=== PATIENT | male | born 1980 | race African-American/Black ===

== ENCOUNTER 2019-05-05 16:23 | Emergency (ER) | payer OTHER ==
--- NOTE | 2019-05-05 17:19 | ED ---
Abdominal Pain/Male - HPI Summary HPI Summary: Patient complains of sternal chest pain and epigastric pain intermittently 2 months. Patient states occurs couple times each day, pain rated 3-6/10. Symptoms worse after eating, worse at night, accompanied by nausea. Denies fever, cough, sore throat, SOB, V/D, change in urine, change in BM. Medical history is none. Abdominal surgical history is none. No prior cardiac history. Prior history of heartburn. - History of Current Complaint Chief Complaint: EDAbdPain Stated Complaint: CHEST PAIN Time Seen by Provider: 05/05/19 17:14 Hx Obtained From: Patient Onset/Duration: Gradual Onset, Lasting Weeks Timing: Intermittent, Lasting Minutes Severity Initially: Moderate Severity Currently: Mild Pain Intensity: 3 Pain Scale Used: 0-10 Numeric Location: Epigastric Radiates to: Chest Character: Sharp, Burning Aggravating Factor(s): Food Alleviating Factor(s): Spontaneous Resolution Associated Signs And Symptoms: Positive: Chest Pain, Decreased Appetite, Nausea - Allergies/Home Medications Allergies/Adverse Reactions: Allergies Allergy/AdvReac Type Severity Reaction Status Date / Time No Known Allergies Allergy Verified 05/05/19 16:28 PMH/Surg Hx/FS Hx/Imm Hx Endocrine/Hematology History: Denies: Hx Anticoagulant Therapy Cardiovascular History: Denies: Hx Pacemaker/ICD History: Denies: Hx Dialysis Sensory History: Denies: Hx Eye Prosthesis Opthamlomology History: Denies: Hx Legally Blind EENT History: Denies: Hx Deafness Neurological History: Denies: Hx Dementia Infectious Disease History: No Infectious Disease History: Denies: Traveled Outside the [place] in Last 30 Days - Family History Known Family History: Positive: Non-Contributory - Social History Alcohol Use: Occasionally Hx Substance Use: No Hx Tobacco Use: No Review of Systems Constitutional: Negative Eyes: Negative ENT: Negative Positive: Chest Pain Respiratory: Negative Positive: Abdominal Pain, Nausea Genitourinary: Negative Musculoskeletal: Negative Skin: Negative Neurological: Negative Psychological: Normal All Other Systems Reviewed And Are Negative: Yes Physical Exam Triage Information Reviewed: Yes Vital Signs On Initial Exam: Initial Vitals Temp Pulse Resp BP Pulse Ox 98.6 F 72 19 140/110 98 05/05/19 16:24 05/05/19 16:24 05/05/19 16:24 05/05/19 16:24 05/05/19 16:24 Vital Signs Reviewed: Yes Appearance: Positive: Well-Appearing Skin: Positive: Warm Head/Face: Positive: Normal Head/Face Inspection Eyes: Positive: Normal Neck: Positive: Supple Respiratory/Lung Sounds: Positive: Clear to Auscultation Cardiovascular: Positive: Normal Abdomen Description: Positive: Other: - Tenderness in the epigastrium. Abdominal exam otherwise unremarkable. Musculoskeletal: Positive: Normal Neurological: Positive: Normal Psychiatric: Positive: Normal AVPU Assessment: Alert - Pamela Coma Scale Best Eye Response: 4 - Spontaneous Best Motor Response: 6 - Obeys Commands Best Verbal Response: 5 - Oriented Coma Scale Total: 15 Procedures - Sedation Patient Received Moderate/Deep Sedation with Procedure: No Diagnostics - Vital Signs Vital Signs Temp Pulse Resp BP Pulse Ox 05/05/19 16:24 98.6 F 72 19 140/110 98 - Laboratory Result Diagrams: 05/05/19 17:54 05/05/19 17:54 Lab Statement: Any lab studies that have been ordered have been reviewed, and results considered in the medical decision making process. Abdominal Pain Male Course/Dx - Course Course Of Treatment: Patient complains of sternal chest pain and epigastric pain intermittently 2 months. Patient states occurs couple times each day, pain rated 3-6/10. Symptoms worse after eating, worse at night, accompanied by nausea. Denies fever, cough, sore throat, SOB, V/D, change in urine, change in BM. Medical history is none. Abdominal surgical history is none. No prior cardiac history. Prior history of heartburn. Vital Signs within normal limits. Labs unremarkable. EKG sinus rhythm, heart rate of 63, normal P axis. No prior on file. Heart score 0. - Diagnoses Provider Diagnoses: Gastritis Discharge ED - Sign-Out/Discharge Documenting (check all that apply): Patient Departure - Discharge Plan Condition: Stable Disposition: HOME Prescriptions: Omeprazole 20 mg PO DAILY 30 Days #30 capsule. Patient Education Materials: Gastritis (ED), Gastroesophageal Reflux Disease in Children (ED) Referrals: No Primary Care Phys,NOPCP [Primary Care Provider] - Clarisa Wright MD [Medical Doctor] - Additional Instructions: Take omeprazole daily to help with stomach pain avoid eating late meals. Elevate your head when you sleep. If symptoms persist despite medication follow -up with GI Dr Wright further evaluation. Return to the ED for any new or worsening symptoms. - Billing Disposition and Condition Condition: STABLE Disposition: Home
[2019-05-05 18:03] LABS: ABS Basophils 0.1 10^3/ul (0-0.2); ABS Eosinophils 0.1 10^3/ul (0-0.6); ABS Lymphocytes 2.5 10^3/ul (1.0-4.8); ABS Monocytes 0.4 10^3/ul (0-0.8); ABS Neutrophils 2.5 10^3/ul (1.5-7.7); Eosinophil % 1.1 %; Hematocrit 45 % (42-52); Hemoglobin 16.1 g/dL (14.0-18.0); Lymphocyte % 45.7 %; Mean Corpuscular HGB Conc 36 g/dL (31-36); Mean Corpuscular Hemoglobin 33 pg (27-31); Mean Corpuscular Volume 92 fL (80-94); Mean Platelet Volume 7.5 fL (7.4-10.4); Nucleated Red Blood Cells % 0.1; Platelet Count 277 10^3/uL (150-450); Red Blood Count 4.94 10^6 /uL (4.18-5.48); Red Cell Distribution Width 13 % (10-15); White Blood Count 5.6 10^3/uL (3.5-10.8)
[2019-05-05 18:17] LABS: Albumin 3.9 g/dL (3.2-5.2); Albumin/Globulin Ratio 1.4 (1-3); BUN/Creatinine Ratio 7.1 (8-20); C Reactive Protein 1.96 mg/L (<8.01); Calcium 8.9 mg/dL (8.6-10.3); EGFR African American 125.1 (>60); EGFR Non-African American 103.4 (>60); Globulin 2.8 g/dL (2-4); Potassium 3.7 mmol/L (3.5-5.0); Total Bilirubin 0.9 mg/dL (0.2-1.0); Total Protein 6.7 g/dL (6.4-8.9)
[2019-05-05] MEDS ORDERED: Pantoprazole TAB * 40 MG TAB PO ONE (18:55)
[2019-05-05 19:15] VITALS: BP 141/94
== END 2019-05-05 19:18 | disposition home or self-care (01) ==
LOC: ED 16:23
DX: K29.70 Gastritis, unspecified, without bleeding (principal)
CPT/HCPCS: 36415; 80053; 83605; 83690; 84484; 85025; 86140; 93005; 99282; A9270-GY